=== PATIENT | female | born 1985 | race Caucasian/White ===

== ENCOUNTER 2019-06-30 10:59 | Day surgery (SDC) | payer OTHER ==
[2019-06-24 16:03] VITALS: BMI 29.2
[~2019-06-30 10:59] MED LIST: DEXAMETHASONE SOD PHOSPHATE 10 MG/ML 1 ML VIAL IV ONE; HEPARIN SODIUM,PORCINE 5,000 UNIT/ML 1 ML VIAL SQ ONE; LACTATED RINGERS 1,000 ML IV SCH; LIDOCAINE 1% 20 ML VIAL (10MG/ML) FOR IV START INTRADERMA PRN; MIDAZOLAM 2 MG/2 ML VIAL IV PRN; ONDANSETRON 4 MG/2 ML VIAL IVP ONE; SCOPOLAMINE 1.5MG/72HR PATCH TRANSDERM ONE
[2019-06-30] MEDS ORDERED: INDOCYANINE GREEN 25 MG VIAL IV STA (11:06)
--- NOTE | 2019-06-30 11:06 | P.GSHP ---
History of Present Illness H&P Date: 06/30/19 CHIEF COMPLAINT: Cholecystitis HISTORY OF PRESENT ILLNESS: The patient is a 33-year-old female who presents with history of epigastric including right upper quadrant abdominal pain. She underwent diagnostic studies for her gallbladder. Separately her clinical picture was consistent with cholecystitis. Now she presents for surgical intervention. PAST MEDICAL HISTORY: Please see list PAST SURGICAL HISTORY: Please see list MEDICATIONS: Please see list ALLERGIES: Denies. SOCIAL HISTORY: No illicit drug use or recent tobacco use FAMILY HISTORY: Pertinent for gallbladder disease REVIEW OF ORGAN SYSTEMS: CONSTITUTIONAL: No reports of fevers or chills. HEENT: Denies any troubles with the vision or hearing. ENDOCRINE: No reports of hypothyroidism. No diabetes. SKIN: No skin cancer. PHYSICAL EXAM: VITAL SIGNS: Afebrile vital signs stable GENERAL: Well-developed pleasant in no acute distress. HEENT: No scleral icterus. Extraocular movements grossly intact. Moist buccal mucosa. NECK: Supple without lymphadenopathy. CHEST: Unlabored respirations. Equal bilateral excursions. CARDIOVASCULAR: Regular rate regular rhythm rhythm. Distal 2+ pulses. ABDOMEN: Soft, nondistended. Tender along the epigastrium and right upper quadrant. MUSCULOSKELETAL: No clubbing, cyanosis, or edema. NEURO: Cranial nerves II to XII within normal limits. No focal or lateralizing signs. PSYCH: Alert and oriented to person, place and time. SKIN: Well-perfused good skin turgor. ASSESSMENT: 1. Epigastric and right upper quadrant abdominal pain 2. Chronic cholecystitis 3. Symptomatic gallstones. PLAN: 1. Will need a robotic cholecystectomy possible open. Benefits and risks were described. 2. Heparin for DVT prophylaxis 5000 units. 3. Antibiotic prophylaxis. Past Medical History Past Medical History: Asthma, Renal Disease Additional Past Medical History / Comment(s): Blurred vision. IBS. High cholestrol - gallbladder contributed, meds don't work. Hx multiple kidney stones. Restless Leg Syndrome. History of Any Multi-Drug Resistant Organisms: None Reported Past Surgical History: Hysterectomy, Tonsillectomy Additional Past Surgical History / Comment(s): Lithotripsy X3, EGD X2, colonoscopy, wisdom teeth extracted, laproscopy for endometrisis X3. Past Anesthesia/Blood Transfusion Reactions: No Reported Reaction Past Psychological History: Anxiety Smoking Status: Never smoker Past Alcohol Use History: Rare Past Drug Use History: Marijuana Additional Drug Use History / Comment(s): Medical Marijuana twice daily. Aware no use 24 hrs prior to procedure. - Past Family History Mother Family Medical History: No Reported History Medications and Allergies Home Medications Medication Instructions Recorded Confirmed Type Albuterol Inhaler [Ventolin Hfa 1 - 2 puff INHALATION RT-Q6H PRN 06/24/19 06/24/19 History Inhaler] Budesonide/Formoterol Fumarate 2 puff INHALATION BID 06/24/19 06/24/19 History [Symbicort 80-4.5 Mcg Inhaler] Cyclobenzaprine [Flexeril] 10 mg PO BID 06/24/19 06/24/19 History HYDROcodone/APAP 7.5-325MG [[place] 1 tab PO DIRECTED PRN 06/24/19 06/24/19 History 7.5-325] Ketorolac [Toradol] 10 mg PO BID PRN 06/24/19 06/24/19 History Ondansetron Odt [Zofran Odt] 8 mg PO DIRECTED PRN 06/24/19 06/24/19 History Ondansetron [Zofran ODT] 4 mg PO DIRECTED PRN 06/24/19 06/24/19 History Allergies Allergy/AdvReac Type Severity Reaction Status Date / Time azithromycin [From Zithromax] Allergy Rash/Hives Verified 06/24/19 16:07 medroxyprogesterone Allergy Dyspnea Verified 06/24/19 16:07 [From Depo-Provera] Depoluprone Allergy Dyspnea Uncoded 06/24/19 16:08
[2019-06-30 11:45] VITALS: TEMP 98.5
[2019-06-30] MEDS ORDERED: MIDAZOLAM (PF) 2 MG/2 ML VIAL IVP ONE (12:03)
[2019-06-30 12:05] LABS: Basophils % (A) 0 %; Eosinophils # (A) 0.2 k/uL (0-0.7); Eosinophils % (A) 2 %; HCT 44.9 % (34.0-46.0); Lymphocytes # (A) 2.6 k/uL (1.0-4.8); Lymphocytes % (A) 40 %; MCH 28.8 pg (25.0-35.0); MCHC 33.4 g/dL (31.0-37.0); MCV 86.1 fL (80.0-100.0); Mean Platelet Volume 6.7; Monocytes # (A) 0.3 k/uL (0-1.0); Monocytes % (A) 5 %; Neutrophils # (A) 3.2 k/uL (1.3-7.7); Neutrophils % (A) 50 %; Platelet Count 334 k/uL (150-450); RBC 5.22 m/uL (3.80-5.40); WBC 6.4 k/uL (3.8-10.6)
[2019-06-30 12:13] LABS: ALT 24 U/L (9-52); AST 32 U/L (14-36); African American GFR (CKD) >90 (>60 ml/min/1.73 sqM); Albumin 4.9 g/dL (3.5-5.0); Alkaline Phosphatase 76 U/L (38-126); Anion Gap 9 mmol/L; Blood Urea Nitrogen 11 mg/dL (7-17); Calcium 9.9 mg/dL (8.4-10.2); Carbon Dioxide 29 mmol/L (22-30); Chloride 105 mmol/L (98-107); Glucose 86 mg/dL (74-99); Potassium 4.1 mmol/L (3.5-5.1); Sodium 143 mmol/L (137-145); Total Bilirubin 0.2 mg/dL (0.2-1.3); Total Protein 8.3 g/dL (6.3-8.2)
[2019-06-30] MEDS ORDERED: fentaNYL (PF) 50 MCG/ML 2 ML AMP IVP ONE (13:30)
[2019-06-30] MEDS ORDERED: NEOSTIGMINE 1 MG/ML 10 ML VIAL ONE (14:55)
[2019-06-30] MEDS ORDERED: ROCURONIUM BROMIDE 10 MG/ML 10 ML VIAL IV ONE (14:55)
[2019-06-30] MEDS ORDERED: MIDAZOLAM 2 MG/2 ML VIAL ONE (14:55)
[2019-06-30] MEDS ORDERED: fentaNYL (PF) 50 MCG/ML 2 ML AMP ONE (14:55)
[2019-06-30] MEDS ORDERED: GLYCOPYRROLATE 0.2 MG/ML 2 ML VIAL ONE (14:55)
[2019-06-30] MEDS ORDERED: SUCCINYLCHOLINE CHLORIDE 100 MG/5 ML SYR IV ONE (14:55)
[2019-06-30] MEDS ORDERED: HYDROmorphone (PF) 1 MG/ML ONE (14:55)
[2019-06-30] MEDS ORDERED: PROPOFOL 10 MG/ML 20 ML VIAL IV ONE (14:55)
[2019-06-30] MEDS ORDERED: LIDOCAINE 1% INJ 10MG/ML (20 ML MDV) ONE (14:55)
[2019-06-30] MEDS ORDERED: LIDOCAINE 1%-EPI 1:100,000 20 ML VIAL SQ ONE (15:24)
[2019-06-30] MEDS ORDERED: LACTATED RINGERS 1,000 ML IV ONE (15:30)
[2019-06-30] MEDS: HYDROmorphone 0.5 MG/0.5 ML SYRINGE IVP PRN ×2 (16:24→16:31)
[2019-06-30] MEDS ORDERED: KETOROLAC 30 MG/ML 1 ML VIAL IVP ONE (16:25)
[2019-06-30] MEDS ORDERED: DEXAMETHASONE SOD PHOSPHATE 10 MG/ML 1 ML VIAL IV PRN (16:27)
--- NOTE | 2019-06-30 16:27 | P.OP ---
Date of Procedure: 06/30/19 Description of Procedure: Date of Procedure: 06/30/19 SURGEON: CAMRYN WAGNER MD PREOPERATIVE DIAGNOSES: 1. Right upper quadrant abdominal pain 2. Chronic cholecystitis 3. Asthma POSTOPERATIVE DIAGNOSES: 1. Right upper quadrant abdominal pain 2. Chronic cholecystitis 3. Asthma 4. Symptomatic gallstones OPERATION: Robotic-assisted da Carol Xi laparoscopic cholecystectomy, multiport with FIREFLY ESTIMATED BLOOD LOSS: 5 mL. SPECIMENS REMOVED: Gallbladder. COMPLICATIONS: None. Anesthesia: GETA, local Condition: stable Disposition: same day Operative Findings: 1. Symptomatic gallstones INDICATIONS: The patient is a 33-year-old female who presents with cholelcystitis. Surgical intervention with a laparoscopic cholecystectomy was described at length including injury to the biliary tree, bleeding, infection, need for further surgery. Informed consent was obtained. Robotic assisted laparoscopic approach was described. Benefits and risks of the procedure including but not limited to bleeding, infection, injury to the biliary tree was described. Informed consent was obtained. DESCRIPTION OF PROCEDURE: Patient was brought to the operating room, placed in supine position. After general induction, the abdomen had been prepped and draped in standard sterile fashion. The robotic da Carol XI system was primed. After a timeout protocol was performed, the patient had been prepped and draped in standard sterile fashion. The patient was injected with indocyanine green. A 5 mm 0 degrees laparoscopic trocar entry was performed along the left upper quadrant. The abdomen insufflated to 15 mmHg pressure which was tolerated well. Diagnostic laparoscopy demonstrated no injury to bowel viscera or mesentery. The liver surface was unremarkable. Next, two 8 mm robotic ports were placed along the right upper abdomen. The camera 8-mm port was maintained along the epigastrium. Another 8 mm port was placed along the left upper abdominal wall after exchanging the 5 mm port. Please note that the ports were placed at least 10 to 15 cm away from the target anatomy of the gallbladder. The robot was docked along the left lateral abdomen. The patient was repositioned in reverse Trendelenburg position. Using a grasper for arm 3, a grasper for arm 4, including hook cautery for arm 1, the robotic system was docked and primed as described. Instruments were interchanged by the patient services assistant including hook cautery, Bovie cautery and clip appliers. I had sat at the console. The gallbladder fundus was retracted over the dome of the liver. Initial attention was brought to the infundibulum which was gently retracted in the inferior lateral approach. Using a grasper, the cystic duct including the cystic artery was carefully skeletonized. FIREFLY was used to identify the cystic artery and cystic structures. Large PLASTIC clips were used throughout the entire case. Using a clip registered nurse teacher 2 clips were placed proximally, and 1 clip was placed distally along the cystic duct and then cauterized with the cautery. The gallbladder was divided between infundibulum and cystic duct with critical view obtained. Next, the cystic artery was similarly clipped and cauterized. Electro-Bovie cautery was used to remove the gallbladder from the hepatic fossa. Hemostasis was checked and found to be adequate. The robot was undocked. I re-scrubbed into the case. Using a 10 mm Endo Catch bag via the left upper quadrant incision, the specimen was removed from the abdominal cavity. All pneumoperitoneum instruments were evacuated from the abdominal cavity. The incisions were reapproximated using 4-0 Monocryl in an interrupted subcuticular fashion. Fascial defects were less than 8 mm in size. Please note along the trocar sites, local anesthetic was placed as a field block prior to insertion of all instruments. Liquid glue was applied to the skin. At the end of the procedure needle, sponge, and instrument count had been verified correct by the certified surgical first assistant. The patient was transferred to postanesthesia care unit in stable condition. Intraoperative films were shared with the patient's family. Plan - Discharge Summary Discharge Rx Participant: Yes New Discharge Prescriptions: New Ibuprofen [Motrin] 600 mg PO Q8HR PRN #30 tab PRN Reason: Pain Continue Budesonide/Formoterol Fumarate [Symbicort 80-4.5 Mcg Inhaler] 2 puff INHALATION BID Ondansetron [Zofran ODT] 4 mg PO DIRECTED PRN PRN Reason: Nausea Ondansetron Odt [Zofran ODT] 8 mg PO DIRECTED PRN PRN Reason: Nausea Ketorolac [Toradol] 10 mg PO BID PRN PRN Reason: Inflammation HYDROcodone/APAP 7.5-325MG [[place] 7.5-325] 1 tab PO DIRECTED PRN PRN Reason: Severe Pain Cyclobenzaprine [Flexeril] 10 mg PO BID Albuterol Inhaler [Ventolin Hfa Inhaler] 1 - 2 puff INHALATION RT-Q6H PRN PRN Reason: Shortness Of Breath Discharge Medication List Albuterol Inhaler [Ventolin Hfa Inhaler] 1 - 2 puff INHALATION RT-Q6H PRN 06/24/19 [History] Budesonide/Formoterol Fumarate [Symbicort 80-4.5 Mcg Inhaler] 2 puff INHALATION BID 06/24/19 [History] Cyclobenzaprine [Flexeril] 10 mg PO BID 06/24/19 [History] HYDROcodone/APAP 7.5-325MG [[place] 7.5-325] 1 tab PO DIRECTED PRN 06/24/19 [History] Ketorolac [Toradol] 10 mg PO BID PRN 06/24/19 [History] Ondansetron Odt [Zofran ODT] 8 mg PO DIRECTED PRN 06/24/19 [History] Ondansetron [Zofran ODT] 4 mg PO DIRECTED PRN 06/24/19 [History] Ibuprofen [Motrin] 600 mg PO Q8HR PRN #30 tab 06/30/19 [Rx] Follow up Appointment(s)/Referral(s): Camryn Wagner MD [STAFF PHYSICIAN] - 07/05/19 Patient Instructions/Handouts: *Surgery [facility] - (Anesthesia) Discharge Instructions Outpatient Surgery, Low Fat Diet (ED), Laparoscopic Cholecystectomy (GEN) Activity/Diet/Wound Care/Special Instructions: May shower. No bathtub soaks until 07/09/2019. Low-fat diet to prevent nausea and vomiting. No lifting over 10 pounds until 07/09/2019. Discharge Disposition: HOME SELF-CARE
[2019-06-30] MEDS ORDERED: SUMAtriptan SUCCINATE 6 MG/0.5 ML VIAL SQ ONE (16:45)
[2019-06-30 16:51] VITALS: RESP 18
[2019-06-30] MEDS ORDERED: HYDROcodone/APAP 7.5-325MG 1 EACH TAB PO ONE ×2 (17:05→17:25)
[2019-06-30 17:29] VITALS: BP 126/81; PULSE 103
== END 2019-06-30 18:23 | disposition home or self-care (01) ==
LOC: OR 10:59
PROVIDERS: ATTEND Surgery Plastic and Reconstructive Surgery
DX: K81.1 Chronic cholecystitis (principal); G25.81 Restless legs syndrome; J45.909 Unspecified asthma, uncomplicated; K58.9 Irritable bowel syndrome, unspecified; Z87.442 Personal history of urinary calculi; Z88.1 Allergy status to other antibiotic agents; Z88.8 Allergy status to other drugs, medicaments and biological substances; G89.29 Other chronic pain; Z79.51 Long term (current) use of inhaled steroids; Z79.899 Other long term (current) drug therapy; Z79.891 Long term (current) use of opiate analgesic
CPT/HCPCS: 88304; 80053; 85025; 47562; J2250 ×2; J1644; J1100; J2710; J0690; J2405; J2001; J3010; J1885; J1170 ×2; J0330; J2704

== ENCOUNTER 2021-02-01 06:52 | Day surgery (SDC) | payer OTHER ==
[2021-01-28 10:04] VITALS: BMI 30.9
--- NOTE | 2021-02-01 04:40 | P.GSHP ---
History of Present Illness H&P Date: 02/01/21 CHIEF COMPLAINT: History of intra-abdominal adhesions with right lower quadrant abdomina pain. HISTORY OF PRESENT ILLNESS: The patient is a 35-year-old female who presents with history of intra-abdominal adhesions from multiple prior surgeries including increasing right lower abdominal pain. She now presents for diagnostic laparoscopy including lysis of adhesions. PAST MEDICAL HISTORY: Please see list. PAST SURGICAL HISTORY: Please see list. MEDICATIONS: Please see list. ALLERGIES: Please see list. SOCIAL HISTORY: No illicit drug use FAMILY HISTORY: No reports of Crohn disease or ulcerative colitis. REVIEW OF ORGAN SYSTEMS: CONSTITUTIONAL: No reports of fevers or chills. GI: Denies any blood in stools or constipation. PHYSICAL EXAM: VITAL SIGNS: Stable GENERAL: Well-developed pleasant and in no acute distress. HEENT: No scleral icterus. Extraocular movements grossly intact. Moist buccal mucosa. NECK: Supple without lymphadenopathy. CHEST: Unlabored respirations. Equal bilateral excursions. CARDIOVASCULAR: Regular rate and rhythm. Distal 2+ pulses. ABDOMEN: Right lower quadrant pain. No peritonitis. MUSCULOSKELETAL: No clubbing, cyanosis, or edema. ASSESSMENT: 1. Right lower abdominal pain. 2. History of multiple abdominal surgeries. 3. Intra-abdominal adhesions. PLAN: 1. Robotic lysis of adhesions with appendectomy were described in detail including risk of injury to the intestine, need for further surgery, and open technique. 2. DVT prophylaxis. 3. Antibiotic prophylaxis. Past Medical History Past Medical History: Asthma, Fibromyalgia, GERD/Reflux Additional Past Medical History / Comment(s): Blurred vision. IBS. Hx multiple kidney stones. Restless Leg Syndrome.CABAN DISEASE , MIGRAINE HEADACHE, ENDOMETRIOSIS History of Any Multi-Drug Resistant Organisms: None Reported Past Surgical History: Cholecystectomy, Hysterectomy, Tonsillectomy Additional Past Surgical History / Comment(s): Lithotripsy X3, EGD X2, colonoscopy, wisdom teeth extracted, laproscopy for endometrisisX5, BILATERAL OOPHERECTOMY Past Anesthesia/Blood Transfusion Reactions: No Reported Reaction Smoking Status: Never smoker - Past Family History Mother Family Medical History: No Reported History Medications and Allergies Home Medications Medication Instructions Recorded Confirmed Type Albuterol Inhaler (Mhu) [Ventolin 1 - 2 puff INHALATION RT-Q6H PRN 06/24/19 01/28/21 History Hfa Inhaler (Mhu)] Budesonide/Formoterol Fumarate 2 puff INHALATION BID 06/24/19 01/28/21 History [Symbicort 80-4.5 Mcg Inhaler] Cyclobenzaprine [Flexeril] 10 mg PO TID 06/24/19 01/28/21 History HYDROcodone/APAP 7.5-325MG [[place] 1 tab PO DIRECTED PRN 06/24/19 01/28/21 History 7.5-325] Ondansetron [Zofran ODT] 4 mg PO Q8H PRN 06/24/19 01/28/21 History Dicyclomine [Bentyl] 10 mg PO BID 01/28/21 01/28/21 History Allergies Allergy/AdvReac Type Severity Reaction Status Date / Time adhesive tape Allergy Rash/Hives Verified 01/29/21 12:17 azithromycin [From Zithromax] Allergy Rash/Hives Verified 01/29/21 12:17 medroxyprogesterone Allergy Dyspnea Verified 01/29/21 12:17 [From Depo-Provera] Depoluprone Allergy Dyspnea Uncoded 01/29/21 12:17
[~2021-02-01 06:52] MED LIST changes: -DEXAMETHASONE SOD PHOSPHATE 10 MG/ML 1 ML VIAL IV ONE; +DEXAMETHASONE SOD PHOSPHATE 4 MG/ML 1 ML VIAL IV ONE; +GABAPENTIN 300 MG CAP PO PRN; -HEPARIN SODIUM,PORCINE 5,000 UNIT/ML 1 ML VIAL SQ ONE; +HEPARIN SODIUM,PORCINE 5,000 UNIT/ML 1 ML VIAL SQ SCH; -LIDOCAINE 1% 20 ML VIAL (10MG/ML) FOR IV START INTRADERMA PRN; +MELOXICAM 7.5 MG TAB PO PRN; +metroNIDAZOLE-NS PMX 500 MG in SALINE 1 100ML.BAG IVPB PRN
[2021-02-01] MEDS ORDERED: ACETAMINOPHEN TAB 500 MG TAB PO PRN (07:00)
[2021-02-01 07:16] VITALS: TEMP 96.9
[2021-02-01] MEDS ORDERED: MIDAZOLAM 2 MG/2 ML VIAL IVP ONE (08:40)
[2021-02-01] MEDS ORDERED: fentaNYL (PF) 50 MCG/ML 2 ML AMP IVP ONE (08:50)
[2021-02-01] MEDS ORDERED: NEOSTIGMINE 1 MG/ML 10 ML VIAL ONE (09:20)
[2021-02-01] MEDS ORDERED: GLYCOPYRROLATE 0.2 MG/ML 2 ML VIAL ONE (09:20)
[2021-02-01] MEDS ORDERED: SUCCINYLCHOLINE CHLORIDE 100 MG/5 ML SYR IV ONE (09:20)
[2021-02-01] MEDS ORDERED: fentaNYL (PF) 50 MCG/ML 2 ML AMP ONE (09:20)
[2021-02-01] MEDS ORDERED: LIDOCAINE 1% INJ 10MG/ML (20 ML MDV) ONE (09:20)
[2021-02-01] MEDS ORDERED: ROPIVACAINE 5 MG/ML 30 ML VIAL ONE (09:20)
[2021-02-01] MEDS ORDERED: PROPOFOL 10 MG/ML 20 ML VIAL IV ONE (09:20)
[2021-02-01] MEDS ORDERED: MIDAZOLAM 2 MG/2 ML VIAL ONE (09:20)
[2021-02-01] MEDS ORDERED: ROCURONIUM 10 MG/ML (5 ML VIAL) IV ONE (09:20)
[2021-02-01] MEDS ORDERED: SODIUM CHLORIDE 0.9% (PF) 10 ML VIAL ONE (09:20)
[2021-02-01] MEDS ORDERED: KETAMINE 10 MG/ML 20 ML VIAL ONE (09:20)
--- NOTE | 2021-02-01 10:10 | P.ANPRN ---
Procedure Note - Anesthesia - Nerve Block Performed Bilateral Erector Spinae Single Time Out Performed: Yes ([id number]) Date of Procedure: 02/01/21 Procedure Start Time: 08:40 Procedure Stop Time: 08:52 Location of Patient: PreOp Indication: Acute Post-Operative Pain, Requested by Surgeon Specifically requested for management of pain by : Camryn Wagner Sedation Type: Sedate with meaningful contact maintained Preparation: Sterile Prep Position: Sitting Catheter: None Needle Types: Pajunk Needle Gauge: 21 Ultrasound used to visualize needle placement: Yes Ultrasound used to observe medication spread: Yes Injectate: Other (see comment) ([place]op[place] 0.25% 30 CC EACH SIDE) Blood Aspirated: No Pain Paresthesia on Injection Noted: No Resistance on Injection: Normal Image Stored and Saved: Yes Events: Uneventful and Well Tolerated
[2021-02-01] MEDS ORDERED: BUPIVACAIN-EPI 0.5%-1:200,000 30 ML VIAL SQ ONE (10:13)
--- NOTE | 2021-02-01 10:56 | P.OP ---
Date of Procedure: 02/01/21 Description of Procedure: SURGEON: CAMRYN WAGNER MD PREOPERATIVE DIAGNOSES: 1. Generalized abdominal pain including right lower quadrant abdominal pain 2. History of multiple abdominal surgeries 3. History of endometriosis 4. Chronic pain syndrome with fibromyalgia 5. Irritable bowel syndrome 6. Chronic surgery pulmonary disease with asthma 7. Gastroesophageal reflux disease POSTOPERATIVE DIAGNOSES: 1. Generalized abdominal pain including right lower quadrant abdominal pain 2. History of multiple abdominal surgeries 3. History of endometriosis 4. Chronic pain syndrome with fibromyalgia 5. Irritable bowel syndrome 6. Chronic surgery pulmonary disease with asthma 7. Gastroesophageal reflux disease OPERATION: 1. Robotic-assisted da Carol Xi laparoscopic with lysis of adhesions 2. Robotic-assisted da Carol Xi laparoscopic appendectomy ESTIMATED BLOOD LOSS: 5 mL. SPECIMENS REMOVED: None. COMPLICATIONS: None. OPERATIVE FINDINGS: 1. No inguinal hernias identified 2. Greater omentum to abdominal wall adhesion of the left upper quadrant 3. Small bowel unremarkable without dilation 4. No abdominal wall hernias identified 5. Peritoneal adhesions right lower quadrant identified. INDICATIONS: The patient is a 35-year-old female who presents with worsening generalized abdominal pain including right lower quadrant abdominal pain. Her history since her for multiple surgeries including hysterectomy, endometriosis, pelvic surgeries. Surgical intervention with diagnostic laparoscopy, lysis of adhesions and appendectomy were described. Informed consent was obtained. Robotic assisted laparoscopic approach was described. Benefits and risks of the procedure including but not limited to bleeding, infection was described. Informed consent was obtained. DESCRIPTION OF PROCEDURE: Patient was brought to the operating room, placed in supine position. After general induction, the abdomen had been prepped and draped in standard sterile fashion. The robotic da Carol XI system was primed. After a timeout protocol was performed, the patient had been prepped and draped in standard sterile fashion. The robot was docked along the right lateral abdomen. Please note prior to docking of the robot; however, a 5 mm 0 degrees laparoscopic trocar entry was performed along the left upper quadrant. The small bowel was unremarkable. No injury to the mesentery, small bowel, solid organs occurred during trocar entry. Next, two 8 mm robotic ports were placed along the upper wall abdomen with a 12 mm trocar along the left upper quadrant. Trochars were placed at least 10 to 15 cm away from the target anatomy. Instruments including graspers and scissors with cautery were interchanged by the [employer] assistant manager. I had sat at the console. Greater omental adhesion to the left upper abdomen was identified and sharply divided using scissors with cautery. The small bowel was investigated from the terminal ileum approximately to the ligament of Treitz with detorsion of small bowel volvulus. Moderate adhesions along the right lower quadrant the appendix was identified and sharply lysed using scissors with cautery. The sigmoid colon was highly redundant. No large or small bowel obstruction was identified. Attention was brought to the appendectomy portion of the procedure. The mesoappendix was freed from surrounding tissue using vessel sealer. A 45 mm blue staple load was entered along the 12 liver trocar and divided from the base of the appendix. Hemostasis was checked using scissors with Bovie cautery. The robot was undocked. All pneumoperitoneum and instruments were evacuated from the abdominal cavity. The incisions were reapproximated using 4-0 Monocryl in an interrupted subcuticular fashion. Please note along the trocar sites, local anesthetic was placed as a field block prior to insertion of all instruments. Exofin was applied to the skin. At the end of the procedure needle, sponge, and instrument count had been verified correct by the ophthalmic surgical assistant. The patient was transferred to postanesthesia care unit in stable condition. Plan - Discharge Summary Discharge Rx Participant: Yes New Discharge Prescriptions: New Ibuprofen [Motrin] 600 mg PO Q8HR PRN #30 tab PRN Reason: Pain Acetaminophen Tab [Tylenol Tab] 1,000 mg PO Q6HR PRN #30 tablet Simethicone [Gas-X] 125 mg PO AC-TID PRN #20 capsule PRN Reason: Abdominal Distention Continue Budesonide/Formoterol Fumarate [Symbicort 80-4.5 Mcg Inhaler] 2 puff INHALATION BID Ondansetron [Zofran ODT] 4 mg PO Q8H PRN PRN Reason: Nausea HYDROcodone/APAP 7.5-325MG [[place] 7.5-325] 1 tab PO DIRECTED PRN PRN Reason: Severe Pain Cyclobenzaprine [Flexeril] 10 mg PO TID Albuterol Inhaler (Mhu) [Ventolin Hfa Inhaler (Mhu)] 1 - 2 puff INHALATION RT-Q6H PRN PRN Reason: Shortness Of Breath Dicyclomine [Bentyl] 10 mg PO BID Discharge Medication List Albuterol Inhaler (Mhu) [Ventolin Hfa Inhaler (Mhu)] 1 - 2 puff INHALATION RT- Q6H PRN 06/24/19 [History] Budesonide/Formoterol Fumarate [Symbicort 80-4.5 Mcg Inhaler] 2 puff INHALATION BID 06/24/19 [History] Cyclobenzaprine [Flexeril] 10 mg PO TID 06/24/19 [History] HYDROcodone/APAP 7.5-325MG [[place] 7.5-325] 1 tab PO DIRECTED PRN 06/24/19 [History] Ondansetron [Zofran ODT] 4 mg PO Q8H PRN 06/24/19 [History] Dicyclomine [Bentyl] 10 mg PO BID 01/28/21 [History] Acetaminophen Tab [Tylenol Tab] 1,000 mg PO Q6HR PRN #30 tablet 02/01/21 [Rx] Ibuprofen [Motrin] 600 mg PO Q8HR PRN #30 tab 02/01/21 [Rx] Simethicone [Gas-X] 125 mg PO AC-TID PRN #20 capsule 02/01/21 [Rx] Follow up Appointment(s)/Referral(s): Camryn Wagner MD [STAFF PHYSICIAN] - 02/05/21 Patient Instructions/Handouts: Lysis of Abdominal Adhesions (IP), Laparoscopic Appendectomy (DC) Activity/Diet/Wound Care/Special Instructions: No lifting over 10 pounds in 2 weeks until February 15. May shower. No bath tub soaks for two weeks until February 15 Diet as tolerated. Use Tylenol and ibuprofen or Aleve scheduled for the next 24-48 hours for best pain relief. Use ice along incisions for today to prevent swelling. Discharge Disposition: HOME SELF-CARE
[2021-02-01] MEDS ORDERED: LACTATED RINGERS 1,000 ML IV ONE ×2 (10:57→12:14)
[2021-02-01] MEDS: HYDROmorphone 0.5 MG/0.5 ML SYRINGE IVP PRN ×4 (11:00→11:41)
[2021-02-01] MEDS ORDERED: ONDANSETRON 4 MG/2 ML VIAL IVP ONE (11:03)
[2021-02-01 12:55] VITALS: RESP 16
[2021-02-01] MEDS ORDERED: HYDROcodone/APAP 7.5-325MG 1 EACH TAB ONE (13:20)
[2021-02-01] MEDS ORDERED: HYDROcodone/APAP 7.5-325MG 1 EACH TAB PO ONE (13:21)
[2021-02-01 13:59] VITALS: BP 122/75; PULSE 79
== END 2021-02-01 14:21 | disposition home or self-care (01) ==
LOC: OR 06:52
PROVIDERS: ATTEND Surgery Plastic and Reconstructive Surgery
DX: K35.80 Unspecified acute appendicitis (principal); R10.31 Right lower quadrant pain; K66.0 Peritoneal adhesions (postprocedural) (postinfection); Z98.890 Other specified postprocedural states; G89.4 Chronic pain syndrome; M79.7 Fibromyalgia; K58.9 Irritable bowel syndrome, unspecified; K21.9 Gastro-esophageal reflux disease without esophagitis; J45.909 Unspecified asthma, uncomplicated; Z87.442 Personal history of urinary calculi; G25.81 Restless legs syndrome; G43.909 Migraine, unspecified, not intractable, without status migrainosus; Z90.49 Acquired absence of other specified parts of digestive tract; Z90.710 Acquired absence of both cervix and uterus; Z90.89 Acquired absence of other organs; Z90.722 Acquired absence of ovaries, bilateral; Z79.891 Long term (current) use of opiate analgesic; Z79.51 Long term (current) use of inhaled steroids; Z79.899 Other long term (current) drug therapy; Z88.1 Allergy status to other antibiotic agents; Z88.8 Allergy status to other drugs, medicaments and biological substances; Z91.09 Other allergy status, other than to drugs and biological substances; F32.9 Major depressive disorder, single episode, unspecified; F41.9 Anxiety disorder, unspecified
CPT/HCPCS: 44970; S2900; 64999; 76942; 88304

== ENCOUNTER 2021-03-14 06:57 | Day surgery (SDC) | payer OTHER ==
[2021-03-12 11:56] VITALS: BMI 32.5
--- NOTE | 2021-03-14 05:07 | P.GSHP ---
History of Present Illness H&P Date: 03/14/21 CHIEF COMPLAINT: History of intra-abdominal adhesions HISTORY OF PRESENT ILLNESS: The patient is a 35-year-old female who presents with history of intra-abdominal adhesions from multiple prior surgeries including increasing abdominal pain which is new at the right upper quadrant. She now presents for diagnostic laparoscopy including lysis of adhesions. PAST MEDICAL HISTORY: Please see list. PAST SURGICAL HISTORY: Please see list. MEDICATIONS: Please see list. ALLERGIES: Please see list. SOCIAL HISTORY: No illicit drug use FAMILY HISTORY: No reports of Crohn disease or ulcerative colitis. REVIEW OF ORGAN SYSTEMS: CONSTITUTIONAL: No reports of fevers or chills. PHYSICAL EXAM: VITAL SIGNS: Stable GENERAL: Well-developed pleasant and in no acute distress. HEENT: No scleral icterus. Extraocular movements grossly intact. Moist buccal mucosa. NECK: Supple without lymphadenopathy. CHEST: Unlabored respirations. Equal bilateral excursions. CARDIOVASCULAR: Regular rate and rhythm. Distal 2+ pulses. ABDOMEN: Soft, diffuse abdominal tenderness. No peritonitis. MUSCULOSKELETAL: No clubbing, cyanosis, or edema. ASSESSMENT: 1. Right upper quadrant abdominal pain. 2. History of multiple abdominal surgeries. 3. Intra-abdominal adhesions. PLAN: 1. Robotic lysis of adhesions were described in detail including risk of injury to the intestine, need for further surgery, and open technique. 2. DVT prophylaxis. 3. Antibiotic prophylaxis. Past Medical History Past Medical History: Asthma, Fibromyalgia, GERD/Reflux Additional Past Medical History / Comment(s): IBS. Multiple Kidney Stones (curr ently waiting for surgery for 10 mm stone). ,RLS., RAYNAUDS DISEASE , MIGRAINES , ENDOMETRIOSIS., SEASONAL ALLERGIES History of Any Multi-Drug Resistant Organisms: None Reported Past Surgical History: Appendectomy, Cholecystectomy, Hysterectomy, Tonsillectomy Additional Past Surgical History / Comment(s): Lithotripsy X3, EGD , colonoscopy, wisdom teeth , laproscopy for endometrisis X5, BILATERAL OOPHERECTOMY , APPENDECTOMY & LYSIS OF ADHESIONS (02/01/21) Past Anesthesia/Blood Transfusion Reactions: No Reported Reaction Past Psychological History: Anxiety, Depression Additional Psychological History / Comment(s): STATES DEPRESSION AND ANXIETY W HEN SHE COMES TO ER DEPTS-STATES SHE DOESNT LIKE THE WAY SHE HAS BEEN TREATED. Smoking Status: Never smoker Past Alcohol Use History: Rare Past Drug Use History: Marijuana Additional Drug Use History / Comment(s): EDIBLES twice daily. Aware no use 24 hrs prior to procedure. - Past Family History Mother Family Medical History: No Reported History Medications and Allergies Home Medications Medication Instructions Recorded Confirmed Type Albuterol Inhaler (Mhu) [Ventolin 1 - 2 puff INHALATION RT-Q6H PRN 06/24/19 03/12/21 History Hfa Inhaler (Mhu)] Cyclobenzaprine [Flexeril] 10 mg PO TID 06/24/19 03/12/21 History HYDROcodone/APAP 7.5-325MG [[place] 1 tab PO Q4HR PRN 06/24/19 03/12/21 History 7.5-325] Ondansetron [Zofran ODT] 4 mg PO Q8H PRN 06/24/19 03/12/21 History Budesonide-Formot 160-4.5 Mcg 2 puff INHALATION BID 03/12/21 03/12/21 History [Symbicort 160-4.5 Mcg Inhaler] Allergies Allergy/AdvReac Type Severity Reaction Status Date / Time adhesive tape Allergy Rash/Hives Verified 03/12/21 11:25 azithromycin [From Zithromax] Allergy Rash/Hives Verified 03/12/21 11:25 medroxyprogesterone Allergy Dyspnea, Verified 03/12/21 11:46 [From Depo-Provera] Lightheaded, dizziness prochlorperazine AdvReac Unknown Restless Verified 03/12/21 11:25 [From Compazine] Legs Depoluprone Allergy Dyspnea, Uncoded 03/12/21 11:46 lightheaded/dizziness (oral depoprovera)
[~2021-03-14 06:57] MED LIST changes: +ACETAMINOPHEN TAB 500 MG TAB PO PRN; -DEXAMETHASONE SOD PHOSPHATE 4 MG/ML 1 ML VIAL IV ONE; -HEPARIN SODIUM,PORCINE 5,000 UNIT/ML 1 ML VIAL SQ SCH; +HEPARIN SODIUM,PORCINE/PF 5,000 UNIT/0.5 ML SYRINGE SQ PRN; +KETOROLAC 15 MG/ML 1 ML VIAL IVP SCH; +LIDOCAINE 1% (10MG/ML) FOR IV START INTRADERMA PRN; -MIDAZOLAM 2 MG/2 ML VIAL IV PRN; +SCOPOLAMINE 1.5MG/72HR PATCH TRANSDERM PRN; -metroNIDAZOLE-NS PMX 500 MG in SALINE 1 100ML.BAG IVPB PRN
[2021-03-14] MEDS ORDERED: METOCLOPRAMIDE 5 MG/ML 2 ML VIAL IVP PRN (07:00)
[2021-03-14] MEDS ORDERED: LIDOCAINE 1% INJ 10MG/ML (20 ML MDV) ONE ×2 (07:57→08:45)
[2021-03-14 08:00] LABS: Basophils % (A) 0 %; Eosinophils # (A) 0.2 k/uL (0-0.7); Eosinophils % (A) 3 %; HCT 37.5 % (34.0-46.0); HGB 13.6 gm/dL (11.4-16.0); Lymphocytes # (A) 2.3 k/uL (1.0-4.8); Lymphocytes % (A) 35 %; MCH 29.7 pg (25.0-35.0); MCHC 36.2 g/dL (31.0-37.0); MCV 82.1 fL (80.0-100.0); Mean Platelet Volume 6.4; Monocytes # (A) 0.3 k/uL (0-1.0); Monocytes % (A) 5 %; Neutrophils # (A) 3.6 k/uL (1.3-7.7); Neutrophils % (A) 56 %; Platelet Count 314 k/uL (150-450); RBC 4.57 m/uL (3.80-5.40); RDW 12.5 % (11.5-15.5); WBC 6.5 k/uL (3.8-10.6)
[2021-03-14 08:12] LABS: ALT 21 U/L (4-34); AST 29 U/L (14-36); African American GFR (CKD) >90 (>60 ml/min/1.73 sqM); Albumin 4.4 g/dL (3.5-5.0); Alkaline Phosphatase 73 U/L (38-126); Anion Gap 8 mmol/L; Blood Urea Nitrogen 11 mg/dL (7-17); Calcium 9.8 mg/dL (8.4-10.2); Carbon Dioxide 27 mmol/L (22-30); Chloride 104 mmol/L (98-107); Glucose 96 mg/dL (74-99); Non-African American GFR(CKD) >90 (>60 ml/min/1.73 sqM); Potassium 4.2 mmol/L (3.5-5.1); Sodium 139 mmol/L (137-145); Total Bilirubin 0.4 mg/dL (0.2-1.3); Total Protein 7.3 g/dL (6.3-8.2)
[2021-03-14] MEDS ORDERED: MIDAZOLAM 2 MG/2 ML VIAL IVP ONE (08:14)
[2021-03-14] MEDS ORDERED: DEXAMETHASONE SOD PHOSPHATE 4 MG/ML 1 ML VIAL IVP ONE (08:20)
[2021-03-14] MEDS ORDERED: fentaNYL (PF) 50 MCG/ML 2 ML AMP ONE (08:45)
[2021-03-14] MEDS ORDERED: PHENYLEPHRINE-0.9% NACL SYG 1,000 MCG/10 ML SYRINGE ONE (08:45)
[2021-03-14] MEDS ORDERED: ROPIVACAINE 5 MG/ML 30 ML VIAL ONE (08:45)
[2021-03-14] MEDS ORDERED: NEOSTIGMINE 1 MG/ML 10 ML VIAL ONE (08:45)
[2021-03-14] MEDS ORDERED: ROCURONIUM 10 MG/ML (5 ML VIAL) IV ONE (08:45)
[2021-03-14] MEDS ORDERED: SUCCINYLCHOLINE CHLORIDE 100 MG/5 ML SYR IV ONE (08:45)
[2021-03-14] MEDS ORDERED: HYDROmorphone (PF) 1 MG/ML ONE (08:45)
[2021-03-14] MEDS ORDERED: diphenhydrAMINE 50 MG/ML 1 ML VIAL ONE (08:45)
[2021-03-14] MEDS ORDERED: PROPOFOL 10 MG/ML 20 ML VIAL IV ONE (08:45)
[2021-03-14] MEDS ORDERED: GLYCOPYRROLATE 0.2 MG/ML 2 ML VIAL ONE (08:45)
[2021-03-14] MEDS ORDERED: LIDOCAINE 1%-EPI 1:100,000 20 ML VIAL SQ ONE (09:47)
[2021-03-14] MEDS: HYDROmorphone 0.5 MG/0.5 ML SYRINGE IVP PRN ×4 (10:15→10:48)
[2021-03-14 10:25] VITALS: TEMP 97.1
[2021-03-14] MEDS ORDERED: LACTATED RINGERS 1,000 ML IV ONE ×2 (10:38)
--- NOTE | 2021-03-14 10:46 | P.OP ---
Date of Procedure: 03/14/21 Description of Procedure: SURGEON: CAMRYN WAGNER MD PREOPERATIVE DIAGNOSES: 1. Peritoneal adhesions, right upper quadrant abdominal pain 2. History of multiple abdominal surgeries 3. History of endometriosis 4. Chronic pain syndrome with fibromyalgia 5. Irritable bowel syndrome 6. Chronic obstructive pulmonary disease with asthma 7. Gastroesophageal reflux disease POSTOPERATIVE DIAGNOSES: 1. Peritoneal adhesions, right upper quadrant abdominal pain 2. History of multiple abdominal surgeries 3. History of endometriosis 4. Chronic pain syndrome with fibromyalgia 5. Irritable bowel syndrome 6. Chronic obstructive pulmonary disease with asthma 7. Gastroesophageal reflux disease OPERATION: 1. Robotic-assisted da Carol Xi laparoscopic with lysis of adhesions ESTIMATED BLOOD LOSS: 5 mL. SPECIMENS REMOVED: Adhesive band COMPLICATIONS: None. OPERATIVE FINDINGS: 1. Small bowel unremarkable 2. Right upper quadrant peritoneal adhesions related to recent surgery INDICATIONS: The patient is a 35-year-old female who presents with moderate severe right upper quadrant abdominal pain. She has has history of cholecystectomy. She has history of multiple abdominal surgeries with adhesions. Surgical intervention with diagnostic laparoscopy, lysis of adhesi ons were described. Informed consent was obtained. Robotic assisted laparoscopic approach was described. Benefits and risks of the procedure including but not limited to bleeding, infection was described. Informed consent was obtained. DESCRIPTION OF PROCEDURE: Patient was brought to the operating room, placed in supine position. After general induction, the abdomen had been prepped and draped in standard sterile fashion. The robotic da Carol XI system was primed. After a timeout protocol was performed, the patient had been prepped and draped in standard sterile fashion. The robot was docked along the left lateral abdomen. Please note prior to docking of the robot; however, a 5 mm 0 degrees laparoscopic trocar entry was performed along the left upper quadrant. Next, three 8 mm robotic ports were placed along the left lateral abdominal wall abdomen. Trochars were placed at least 10 to 15 cm away from the target anatomy. Instruments including graspers and scissors with cautery were interchanged by the senior it assistant. I had sat at the console. Initial diagnostic laparoscopy demonstrated small bowel was unremarkable. The right upper quadrant including right lower quadrant were carefully estimated. At the location of pain, adhesion of omental fat was lysed. Additionally, at the liver edge peritoneal adhesions from the greater omentum omentum including proximal transverse colon colon were lysed from the right inferior liver edge also consistent with the patient's location of pain. Hemostasis was checked. Along her prior incisions, no palpable ventral hernias were identified. No large or small bowel obstruction was identified. The robot was undocked. All pneumoperitoneum and instruments were evacuated from the abdominal cavity. The incisions were reapproximated using 4-0 Monocryl in an interrupted subcuticular fashion. Please note along the trocar sites, local anesthetic was placed as a field block prior to insertion of all instruments. Exofin was applied to the skin. At the end of the procedure needle, sponge, and instrument count had been verified correct by the tool technician. The patient was transferred to postanesthesia care unit in stable condition. Plan - Discharge Summary Discharge Rx Participant: Yes New Discharge Prescriptions: New Simethicone [Gas-X] 125 mg PO AC-TID PRN #20 capsule PRN Reason: Abdominal Distention Acetaminophen Tab [Tylenol Tab] 1,000 mg PO Q6HR PRN #30 tablet PRN Reason: Pain Continue Ondansetron [Zofran ODT] 4 mg PO Q8H PRN PRN Reason: Nausea HYDROcodone/APAP 7.5-325MG [Beggs 7.5-325] 1 tab PO Q4HR PRN PRN Reason: Pain Cyclobenzaprine [Flexeril] 10 mg PO TID Albuterol Inhaler (Mhu) [Ventolin Hfa Inhaler (Mhu)] 1 - 2 puff INHALATION RT-Q6H PRN PRN Reason: Shortness Of Breath Budesonide-Formot 160-4.5 Mcg [Symbicort 160-4.5 Mcg Inhaler] 2 puff INHALATION BID Discharge Medication List Albuterol Inhaler (Mhu) [Ventolin Hfa Inhaler (Mhu)] 1 - 2 puff INHALATION RT- Q6H PRN 06/24/19 [History] Cyclobenzaprine [Flexeril] 10 mg PO TID 06/24/19 [History] HYDROcodone/APAP 7.5-325MG [Beggs 7.5-325] 1 tab PO Q4HR PRN 06/24/19 [History] Ondansetron [Zofran ODT] 4 mg PO Q8H PRN 06/24/19 [History] Budesonide-Formot 160-4.5 Mcg [Symbicort 160-4.5 Mcg Inhaler] 2 puff INHALATION BID 03/12/21 [History] Acetaminophen Tab [Tylenol Tab] 1,000 mg PO Q6HR PRN #30 tablet 03/14/21 [Rx] Simethicone [Gas-X] 125 mg PO AC-TID PRN #20 capsule 03/14/21 [Rx] Follow up Appointment(s)/Referral(s): Camryn Wagner MD [STAFF PHYSICIAN] - 03/19/21 Patient Instructions/Handouts: *[facility] - Managing Your Pain After Surgery Without Opioids, Lysis of Abdominal Adhesions (DC) Activity/Diet/Wound Care/Special Instructions: No lifting over 10 pounds in 2 weeks until March 28. May shower. No bath tub soaks for two weeks until March 28 Diet as tolerated. Use Tylenol, simethicone and ibuprofen or Aleve scheduled for the next 24-48 hours for best pain relief. Use ice along incisions for today to prevent swelling. Discharge Disposition: HOME SELF-CARE
[2021-03-14] MEDS ORDERED: ONDANSETRON 4 MG/2 ML VIAL IVP ONE (10:49)
[2021-03-14 11:41] VITALS: BP 123/77; PULSE 94; RESP 16
--- NOTE | 2021-03-14 12:05 | P.ANPRN ---
Procedure Note - Anesthesia - Nerve Block Performed Bilateral Erector Spinae Single Time Out Performed: Yes Date of Procedure: 03/14/21 Procedure Start Time: : Procedure Stop Time: Location of Patient: PreOp Indication: Acute Post-Operative Pain, Requested by Surgeon Sedation Type: Sedate with meaningful contact maintained Preparation: Sterile Prep Position: Prone Needle Types: Pajunk Needle Gauge: 21 Ultrasound used to visualize needle placement: Yes Ultrasound used to observe medication spread: Yes Blood Aspirated: No Pain Paresthesia on Injection Noted: No Resistance on Injection: Normal Image Stored and Saved: Yes Events: Uneventful and Well Tolerated (ropi .5% 15cc plus xylo 1% 15cc at t10 bilaterally)
== END 2021-03-14 12:23 | disposition home or self-care (01) ==
LOC: OR 06:57
PROVIDERS: ATTEND Surgery Plastic and Reconstructive Surgery
DX: K66.0 Peritoneal adhesions (postprocedural) (postinfection) (principal); M79.7 Fibromyalgia; G89.4 Chronic pain syndrome; K58.9 Irritable bowel syndrome, unspecified; K21.9 Gastro-esophageal reflux disease without esophagitis; J44.9 Chronic obstructive pulmonary disease, unspecified; I73.00 Raynaud's syndrome without gangrene; F41.9 Anxiety disorder, unspecified; F32.9 Major depressive disorder, single episode, unspecified; Z79.51 Long term (current) use of inhaled steroids; Z88.1 Allergy status to other antibiotic agents; Z88.8 Allergy status to other drugs, medicaments and biological substances
CPT/HCPCS: 49329; S2900; 64999; 76942; 80053; 85025; 88305